=== PATIENT | female | born 1960 | race Caucasian/White ===

== ENCOUNTER 2017-11-13 22:42 | Emergency (ER) | payer OTHER ==
[2017-11-14] MEDS: MECLIZINE 12.5 MG TAB PO (01:54)
== END 2017-11-14 02:42 | disposition home or self-care (01) ==
LOC: FTE 22:42
DX: R42 Dizziness and giddiness (principal)
CPT/HCPCS: 93005; 99283-25

== ENCOUNTER 2018-08-21 18:29 | Emergency (ER) | payer OTHER ==
[2018-08-21 18:54] LABS: URINE PH (Dip) POC 7.5 (5.0-8.5)
[2018-08-21 18:54] LABS: URINE BLOOD (Dip) POC Negative (NEGATIVE); URINE GLUCOSE (Dip) POC Negative (NEGATIVE); URINE KETONES (Dip) POC Negative (NEGATIVE); URINE LEUKOCYTE EST (Dip) POC Negative (NEGATIVE); URINE NITRITE (Dip) POC Negative (NEGATIVE); URINE TOTAL PROTEIN POC Negative (NEGATIVE)
[2018-08-21] MEDS: SODIUM CHLORIDE 0.9% 1L BAG IV* (18:57)
[2018-08-21 19:01] LABS: ADD MAN DIFF? NO
[2018-08-21 19:05] LABS: BASOPHIL # 0.1 10^3/ul (0.0-0.1); BASOPHILS % 0.6 % (0.0-2.0); EOSINOPHILS # 0.6 10^3/ul (0.0-0.5); EOSINOPHILS % 4.8 % (0.0-7.0); HEMATOCRIT 39.5 % (37.0-47.0); HEMOGLOBIN 12.6 g/dl (12.0-16.0); LYMPHOCYTES # 1.4 10^3/ul (0.8-2.9); LYMPHOCYTES % 11.7 % (15.0-51.0); MEAN CORPUSCULAR HEMOGLOBIN 30.7 pg (29.0-33.0); MEAN CORPUSCULAR HGB CONC 31.9 g/dl (32.0-37.0); MEAN CORPUSCULAR VOLUME 96.3 fl (82.0-101.0); MEAN PLATELET VOLUME 10.2 fl (7.4-10.4); MONOCYTES % 8.2 % (0.0-11.0); NEUTROPHIL # 9.1 10^3/ul (1.6-7.5); PLATELET COUNT 435 10^3/UL (140-415); RED CELL DISTRIBUTION WIDTH 12.9 % (11.5-14.5)
[2018-08-21 19:05] LABS: WHITE BLOOD COUNT 12.3 10^3/ul (4.8-10.8)
[2018-08-21 19:13] LABS: ADD UMIC NO; UR ASCORBIC ACID 20 mg/dL (NEGATIVE); UR BILIRUBIN (Dip) NEGATIVE (NEGATIVE); UR BLOOD (Dip) NEGATIVE (NEGATIVE); UR CLARITY SLIGHTLY CLOUDY (CLEAR); UR COLOR YELLOW (YELLOW); UR GLUCOSE (Dip) NEGATIVE (NEGATIVE); UR KETONES (Dip) NEGATIVE (NEGATIVE); UR LEUKOCYTE ESTERASE (Dip) NEGATIVE Leu/ul (NEGATIVE); UR MUCUS FEW /HPF (NONE SEEN); UR NITRITE (Dip) NEGATIVE (NEGATIVE); UR RBC 1 /HPF (0-5); UR SPECIFIC GRAVITY (Dip) 1.016 (1.003-1.030); UR SQUAMOUS EPITHELIAL CELL FEW /HPF (FEW); UR TOTAL PROTEIN (Dip) NEGATIVE (NEGATIVE); UR UROBILINOGEN (Dip) 2+ mg/dL (NEGATIVE); UR WBC 1 /HPF (0-5)
[2018-08-21 19:23] LABS: INR 0.98; PROTIME 13.1 Sec (11.9-14.9)
[2018-08-21 19:24] LABS: PARTIAL THROMBOPLASTIN TIME 32.6 Sec (23.0-35.0)
[2018-08-21 19:25] LABS: LACTIC ACID 1.8 mmol/L (0.5-2.0)
[2018-08-21 19:29] LABS: ALBUMIN/GLOBULIN RATIO 0.93; ALKALINE PHOSPHATASE 105 IU/L (42-121); ANION GAP 9 (5-13); ASPARTATE AMINO TRANSFERASE 24 IU/L (15-46); BLOOD UREA NITROGEN 14 mg/dl (7-20); CALCIUM 8.9 mg/dl (8.4-10.2); CARBON DIOXIDE 29 mmol/L (21-31); CHLORIDE 104 mmol/L (97-110); CREATININE 0.52 mg/dl (0.44-1.00); Estimated GFR > 60 mL/min (>60); GLUCOSE 136 mg/dl (70-220); SODIUM 142 mmol/L (135-144); TOTAL PROTEIN 8.3 g/dl (6.1-8.1)
[2018-08-21 19:30] LABS: ALANINE AMINOTRANSFERASE < 6 IU/L (13-69)
[2018-08-21 19:40] LABS: TROPONIN-I < 0.012 ng/ml (0.000-0.120)
[2018-08-21] MEDS: LEVOFLOXACIN 750MG/D5W (PMX) 150 ML IVPB (22:31)
== END 2018-08-22 00:39 | disposition home or self-care (01) ==
LOC: E/R 08-22 00:39
DX: J18.9 Pneumonia, unspecified organism (principal); D72.829 Elevated white blood cell count, unspecified; K57.30 Diverticulosis of large intestine without perforation or abscess without bleeding; K42.9 Umbilical hernia without obstruction or gangrene; D47.3 Essential (hemorrhagic) thrombocythemia; K76.9 Liver disease, unspecified; I10 Essential (primary) hypertension; R10.9 Unspecified abdominal pain
CPT/HCPCS: 36415; 71045; 74176; 80053; 81001; 81003; 83605; 84484; 85025; 85610; 85730; 87040; 87045; 87086; 87400; 93005; 96374; 99285-25